=== PATIENT | male | born 1935 | race Native Hawaiian/Other Pacific Islander ===

== ENCOUNTER 2022-05-04 10:46 | Inpatient (IN) | payer OTHER | END 2022-05-06 07:43 | disposition still patient (30) | LOC: PAVB 10:46 | PROVIDERS: ADMIT Family Medicine; ATTEND Family Medicine | DX: I48.21 Permanent atrial fibrillation (principal); M62.82 Rhabdomyolysis; R26.2 Difficulty in walking, not elsewhere classified; R26.81 Unsteadiness on feet; Z74.1 Need for assistance with personal care | CPT/HCPCS: 87081 ==

== ENCOUNTER 2022-05-06 08:18 | Inpatient (IN) | payer OTHER | END 2022-05-11 16:33 | disposition home or self-care (01) | LOC: PAVB 08:18 | PROVIDERS: ADMIT Family Medicine; ATTEND Family Medicine | DX: I48.21 Permanent atrial fibrillation (principal); M62.82 Rhabdomyolysis; R26.2 Difficulty in walking, not elsewhere classified; R26.81 Unsteadiness on feet; Z74.1 Need for assistance with personal care ==